=== PATIENT | female | born 1940 | race Caucasian/White ===

== ENCOUNTER → 2021-04-13 | Outpatient (CLI) | payer MEDICARE ==
[~2021-04-13] MED LIST: ACTOS30 MG PO; ALENDRONATE SOD70 MG PO; AMLODIPINE-BEN1 EACH PO; CLARITIN10 MG PO; GLUCOPHAGE 500500 MG PO; LOTENSIN40 MG PO; NORVASC5 MG PO; SINGULAIR10 MG PO; SYNTHROID100 MCG PO; ZOCOR 40 MG TAB40 MG PO
== END ==
LOC: EXRD 04-07 13:00
DX: M81.0 Age-related osteoporosis without current pathological fracture (principal); M85.88 Other specified disorders of bone density and structure, other site; M85.851 Other specified disorders of bone density and structure, right thigh
CPT/HCPCS: 77080

== ENCOUNTER 2021-04-24 22:45 | Emergency (ER) | payer MEDICARE, SELFPAY ==
[2021-04-25 00:01] LABS: HEMOGLOBIN 10.4 gm/dl (12.3-15.3); RED BLOOD COUNT 3.64 M/UL (4.00-5.10); WHITE BLOOD COUNT 9.2 K/UL (4.5-11.0)
== END 2021-04-25 04:20 | disposition home or self-care (01) ==
LOC: ER1 22:45
PROVIDERS: Nurse Practitioner
DX: K62.3 Rectal prolapse (principal); E11.9 Type 2 diabetes mellitus without complications; E03.9 Hypothyroidism, unspecified; I10 Essential (primary) hypertension; Z88.0 Allergy status to penicillin; Z90.710 Acquired absence of both cervix and uterus; Z96.642 Presence of left artificial hip joint
CPT/HCPCS: 80053; 85025; 99284

== ENCOUNTER 2021-04-28 11:33 | Observation (INO) | payer MEDICARE, OTHER ==
[~2021-04-28] VITALS: Ht 162.6 cm; Wt 68.0 kg
[2021-04-28] MEDS ORDERED: AMLODIPINE-BEN1 EACH PO (13:09)
[2021-04-28] MEDS ORDERED: LOTENSIN40 MG PO (13:09)
[2021-04-28] MEDS ORDERED: GLUCOPHAGE 500500 MG PO (13:10)
[2021-04-28] MEDS ORDERED: CLARITIN10 MG PO (13:10)
[2021-04-28] MEDS ORDERED: ZOCOR 40 MG TAB40 MG PO (13:11)
[2021-04-28] MEDS ORDERED: SYNTHROID100 MCG PO (13:11)
[2021-04-28] MEDS ORDERED: SINGULAIR10 MG PO (13:11)
[2021-04-28] MEDS ORDERED: ALENDRONATE SOD70 MG PO (13:13)
[2021-04-28] MEDS ORDERED: ACTOS30 MG PO (13:13)
[2021-04-28] MEDS ORDERED: NORVASC5 MG PO (20:35)
[2021-04-29 00:14] LABS: HEMOGLOBIN 10.3 gm/dl (12.3-15.3); RED BLOOD COUNT 3.79 M/UL (4.00-5.10); WHITE BLOOD COUNT 9.2 K/UL (4.5-11.0)
--- NOTE | 2021-05-03 23:46 | NUR ---
REPORT RECIEVED FROM [facility]CTOR AT 2300. PATIENT AWAKE AT BEDSIDE. A/O NO NEEDS AT THIS TIME.
--- NOTE | 2021-05-04 16:40 | NUR ---
REPORT CALLED TO [facility] WITH [facility].
== END 2021-05-04 16:10 | disposition home or self-care (01) ==
LOC: MED SURG 4 11:33 → OR 11:33 → MED SURG 4 20:30 → OR 20:30 → MED SURG 4 04-30 17:44 → OR 04-30 17:44 → MED SURG 4 05-04 16:10
PROVIDERS: Internal Medicine; ADMIT Surgery
PROC: 0DQP4ZZ Repair Rectum, Percutaneous Endoscopic Approach (ICD-10-PCS; principal; 2021-04-28 12:15)
DX: K62.3 Rectal prolapse (principal); N73.6 Female pelvic peritoneal adhesions (postinfective); N32.89 Other specified disorders of bladder; R00.1 Bradycardia, unspecified; I12.9 Hypertensive chronic kidney disease with stage 1 through stage 4 chronic kidney disease, or unspecified chronic kidney disease; E11.22 Type 2 diabetes mellitus with diabetic chronic kidney disease; N18.9 Chronic kidney disease, unspecified; D63.1 Anemia in chronic kidney disease; E03.9 Hypothyroidism, unspecified; Z20.822 Contact with and (suspected) exposure to COVID-19; Z79.84 Long term (current) use of oral hypoglycemic drugs; Z79.899 Other long term (current) drug therapy; Z90.710 Acquired absence of both cervix and uterus; Z88.0 Allergy status to penicillin
CPT/HCPCS: 36415; 80048; 82962; 83735; 84439; 84443; 85025; 93005; 96372; 96374; 97162; C1763; C1781; G0378 ×2; J0360; J0690; J1100; J1170; J1650; J2001; J2270; J2405; J2704; J3010; J7030; J7120; U0002

== ENCOUNTER 2021-07-10 14:08 | Inpatient (IN) | payer MEDICARE ==
[~2021-07-10] VITALS: Ht 162.6 cm; Wt 64.4 kg
[2021-07-10 14:42] LABS: HEMOGLOBIN 11.4 gm/dl (12.3-15.3); RED BLOOD COUNT 3.92 M/UL (4.00-5.10)
[2021-07-11 06:42] LABS: HEMOGLOBIN 9.9 gm/dl (12.3-15.3)
[2021-07-11 06:49] LABS: RED BLOOD COUNT 3.48 M/UL (4.00-5.10); WHITE BLOOD COUNT 5.1 K/UL (4.5-11.0)
[2021-07-12 06:34] LABS: HEMOGLOBIN 10.8 gm/dl (12.3-15.3); RED BLOOD COUNT 3.71 M/UL (4.00-5.10)
[2021-07-12 06:38] LABS: WHITE BLOOD COUNT 9.8 K/UL (4.5-11.0)
[2021-07-13 05:56] LABS: HEMOGLOBIN 10.3 gm/dl (12.3-15.3); RED BLOOD COUNT 3.6 M/UL (4.00-5.10); WHITE BLOOD COUNT 9.9 K/UL (4.5-11.0)
[2021-07-14 07:29] LABS: RED BLOOD COUNT 3.91 M/UL (4.00-5.10); WHITE BLOOD COUNT 10.6 K/UL (4.5-11.0)
[2021-07-15 05:46] LABS: HEMOGLOBIN 11.1 gm/dl (12.3-15.3); RED BLOOD COUNT 3.87 M/UL (4.00-5.10); WHITE BLOOD COUNT 9.2 K/UL (4.5-11.0)
[2021-07-16 07:19] LABS: HEMOGLOBIN 10.7 gm/dl (12.3-15.3); RED BLOOD COUNT 3.8 M/UL (4.00-5.10); WHITE BLOOD COUNT 9.6 K/UL (4.5-11.0)
[2021-07-17 09:50] LABS: HEMOGLOBIN 10.7 gm/dl (12.3-15.3); RED BLOOD COUNT 3.76 M/UL (4.00-5.10); WHITE BLOOD COUNT 10.5 K/UL (4.5-11.0)
[2021-07-18 05:21] LABS: HEMOGLOBIN 11.6 gm/dl (12.3-15.3); RED BLOOD COUNT 4.02 M/UL (4.00-5.10); WHITE BLOOD COUNT 9.1 K/UL (4.5-11.0)
[2021-07-19 10:18] LABS: HEMOGLOBIN 10.7 gm/dl (12.3-15.3); RED BLOOD COUNT 3.7 M/UL (4.00-5.10); WHITE BLOOD COUNT 8.8 K/UL (4.5-11.0)
[2021-07-20 10:23] LABS: HEMOGLOBIN 10.8 gm/dl (12.3-15.3); RED BLOOD COUNT 3.76 M/UL (4.00-5.10); WHITE BLOOD COUNT 8.3 K/UL (4.5-11.0)
[2021-07-21 07:11] LABS: HEMOGLOBIN 10.3 gm/dl (12.3-15.3); RED BLOOD COUNT 3.6 M/UL (4.00-5.10); WHITE BLOOD COUNT 6.7 K/UL (4.5-11.0)
[2021-07-22 03:07] LABS: HEMOGLOBIN 10.1 gm/dl (12.3-15.3); RED BLOOD COUNT 3.46 M/UL (4.00-5.10)
[2021-07-23] MEDS ORDERED: ASPIRIN EC81 MG PO (12:23)
[2021-07-23] MEDS ORDERED: THERAGRAN M TAB1 EA PO (12:23)
[2021-07-23] MEDS ORDERED: VENTOLIN HFA 66.7 GM INH (12:23)
[2021-07-23] MEDS ORDERED: FERROUS GLUCON324 M1 PO (12:25)
== END 2021-07-23 15:02 | disposition home health service (06) | DRG 177 ==
LOC: ER1 14:08 → M/S 16:06 → CDU 16:06 → M/S 19:10
PROVIDERS: Internal Medicine; Internal Medicine Infectious Disease; Physician Assistant Medical; ADMIT Internal Medicine
PROC: 8E0ZXY6 Isolation (ICD-10-PCS; principal; 2021-07-10)
PROC: XW033E5 Introduction of Remdesivir Anti-infective into Peripheral Vein, Percutaneous Approach, New Technology Group 5 (ICD-10-PCS; 2021-07-10)
PROC: 3E0333Z Introduction of Anti-inflammatory into Peripheral Vein, Percutaneous Approach (ICD-10-PCS; 2021-07-10)
DX: U07.1 COVID-19 (principal); J12.82 Pneumonia due to coronavirus disease 2019; J96.01 Acute respiratory failure with hypoxia; E43 Unspecified severe protein-calorie malnutrition; N17.9 Acute kidney failure, unspecified; E87.1 Hypo-osmolality and hyponatremia; E87.2 Acidosis; I10 Essential (primary) hypertension; E88.09 Other disorders of plasma-protein metabolism, not elsewhere classified; E03.9 Hypothyroidism, unspecified; D50.9 Iron deficiency anemia, unspecified; E86.0 Dehydration; E11.65 Type 2 diabetes mellitus with hyperglycemia; Z79.899 Other long term (current) drug therapy; Z79.82 Long term (current) use of aspirin; Z79.84 Long term (current) use of oral hypoglycemic drugs; Z68.24 Body mass index [BMI] 24.0-24.9, adult
CPT/HCPCS: 36415; 36600; 71045; 78579; 80048; 80053; 82550; 82553; 82803; 82962; 83036; 83540; 83550; 83605; 83735; 83874; 83880; 84100; 84484; 85025; 85027; 85652; 86140; 87040; 93005; 94640; 94760; 96374; 97110-GP-CQ; 97116; 97116-GP-CQ; 97162; 97530; 97530-GP-CQ; 99285; A9540; J0360; J1100; J1650; J2185; J7030; U0002